=== PATIENT | male | born 1980 | race Two or more races ===

== ENCOUNTER 2024-03-17 05:07 | Emergency (ER) | payer SELFPAY ==
[2024-03-17] MEDS: Ketorolac 30 MG/ML SDV IM ONE (05:45)
[2024-03-17] MEDS: Orphenadrine 60 MG/2 ML Inj IM ONE (05:46)
== END 2024-03-17 05:53 | disposition home or self-care (01) ==
LOC: MW.ED 05:07
DX: S39.012A Strain of muscle, fascia and tendon of lower back, initial encounter (principal); Z75.8 Other problems related to medical facilities and other health care; Z79.899 Other long term (current) drug therapy; Z88.2 Allergy status to sulfonamides; W18.40XA Slipping, tripping and stumbling without falling, unspecified, initial encounter
CPT/HCPCS: 96372; 99283; J1885; J2360